=== PATIENT | female | born 1975 | race Caucasian/White ===

== ENCOUNTER 2025-02-08 13:33 | Emergency (ER) | payer OTHER ==
[~2025-02-08] VITALS: Ht 160 cm; Wt 71.2 kg
[2025-02-08] MEDS ORDERED: IOHEXOL 300 MG/ML 100 ML VIAL IV ONE (14:15)
[2025-02-08 14:25] LABS: BASO # 0.1 10*3/uL (0.0-0.1); BASO % 1.0 % (0.0-1.0); EOS # 0.1 10*3/uL (0.0-0.4); EOS % 2.0 % (1.0-4.0); MEAN CELL VOLUME 87.4 fl (81.0-99.0); MEAN CORPUSCULAR HGB 28.2 pg (27.0-31.0); MEAN PLATELET VOLUME 9.8 fl (9.6-12.3); MONO # 0.6 10*3/uL (0.1-1.0); MONO % 11.1 % (3.0-9.0); NEUT # 2.9 10*3/uL (2.3-7.9); NEUT % 58.9 % (47.0-73.0); NUCLEATED RED BLOOD CELL 0.0 % (0.0-0.0); NUCLEATED RED BLOOD CELL 0.0 10*3/uL (0.0-0.0); PLATELET COUNT AUTOMATED 324 10*3/uL (130-400); RED CELL DISTRI WIDTH 13.2 % (0-14.5)
[2025-02-08 14:57] LABS: BUN 8 mg/dl (9-23); SGPT/ALT 16 U/L (5-49)
== END 2025-02-08 16:41 | disposition home or self-care (01) ==
LOC: ED 13:33
PROVIDERS: Nurse Practitioner Family
DX: R19.7 Diarrhea, unspecified (principal); R10.9 Unspecified abdominal pain; F41.9 Anxiety disorder, unspecified; I25.10 Atherosclerotic heart disease of native coronary artery without angina pectoris; Z88.2 Allergy status to sulfonamides